=== PATIENT | male | born 1990 | race Caucasian/White ===

== ENCOUNTER 2023-06-20 12:57 | Outpatient (AMB) | payer OTHER, SELFPAY ==
--- NOTE | 2023-06-20 13:08 | A.OFFVIS_ITS ---
Intake Vital Signs 06/20/23 13:09 Height 5 ft 6 in Weight 184 lb 8.43 oz BMI 29.8 BP 140/72 H Blood Pressure Location Lt brachial Position Sitting Pulse 67 Pulse Source Pulse Oximeter Pulse Oximetry (%) 99 Oxygen Delivery Method Room Air Intake Visit Reasons: Reactive arthritis Intake Note: [place] patient[place] [facility] [place] presents to office today for consult. Previously seen by Dr. Max and Dr. Mcfarland. Reports being on sulfasalazine, initially prescribed 5 tabs daily but pt has tapered himself down to 3 tabs daily in fear of not being seen for a while and running out of medication. PCP will not refill sulfasalazine. 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 He was diagnosed in 2020 in the emergency room when he present with the triad - eye pain, right knee pain and swelling and UTI. He is being managed with SLZ 500mg. He was prescribed 5 pills per day but has since self-weaned down to 3 pills per day and finds that he does on well on 3. He denies current knee pain but does say depending on his activity level, his heel/achilles may be sore. He does not work the strenuous work anymore so that has helped. He reports he has not had any of the eye pain or UTI since diagnosis. He offers no other health concerns at this time. He has a new PCP and did labs about 2 weeks ago He denies, psoriasis, symptoms of IBD, other areas of tendinitis or lower back pain. 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 Heroin abuse GERD (gastroesophageal reflux disease) Asthma Reactive arthritis Surgical History (Updated 06/03/23 @ 10:56 by JENNIFER Israel) S/P MCL repair Hx of endoscopy Family History (Updated 06/20/23 @ 13:21 by Aniyah Cruz Eduar, CCMA) Father Family history of diabetes mellitus Mother Thyroid disease Family history of breast cancer in female Social History (Updated 06/20/23 @ 13:13 by Aniyah Witt [facility]) Household Members: None Alcohol intake: current Alcohol intake frequency: does not drink Patient Tobacco Use Status: Former Tobacco user Tobacco use type: Cigarette Years Smoked: 10 Review of Systems Const All systems reviewed & are unremarkable except as noted in HPI and below Physical Exam Vital Signs: BMI result Body Mass Index 29.8 APPEARANCE: Patient in no acute distress EYES no redness, eyelids normal NECK:? No thyromegaly or masses, no adenopathy, trachea midline. HEART:? Regular rhythm, S1-S2 heard, no murmurs, rubs or gallops. LUNG:? Clear to percussion and auscultation EXTREMITIES:? No edema, no calf tenderness, normal peripheral pulses. NEURO:? Oriented and alert x3.? No focal weakness.? Reflexes symmetric.? Gait normal. SKIN:? There are no skin lesions evident. No objective signs of Raynaud's phenomenon. JOINT EXAM: Cervical Spine:.? Full range of motion without pain; no tenderness. Thoracic Spine:.? No scoliosis.? No tenderness on palpation. Lumbar Spine:.? Alignment normal.? Full range of motion without pain, no tenderness. Chest Wall:.? No tenderness, swelling, increased warmth or erythema. Hands:.? Normal pain-free range of motion without tenderness, swelling, increased warmth or erythema. Able to make a full fist and has a good grain broker strength. Wrists:.? Normal pain-free range of motion without tenderness, swelling, increased warmth or erythema. Elbows:. Normal pain-free range of motion without tenderness, swelling, increased warmth or erythema. Shoulders:.?? Full range of motion without pain. No tenderness, weakness, swelling, increased warmth or erythema. Hips:.? Full range of motion without pain. Hip bursa:.? No tenderness. Knees:.?? Normal pain-free range of motion without tenderness, swelling, increased warmth or erythema.? There is no effusion or crepitation Ankles:.? Normal pain-free range of motion without tenderness, swelling, increased warmth or erythema. mild tenderness on palpation to right achilles. Feet:.? Normal pain-free range of motion without tenderness, swelling, increased warmth or erythema. ? 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 Julio here for management of Bruce's. He is very established in his care and has been taking sulfasalazine since 2020. He has been stable without major symptoms for a long time and has self-weaned down to 3 tablets per day. PE was unremarkable. We discussed that the main symptoms of reactive arthritis typically goes away in a few months. Sometimes some persons may have a residual mild arthritis symptoms for up to a year while some may develop mild, long-term arthritis.?It is also possible have a flare-up of reactive arthritis in the future. I think we should continue to wean over the next year so at next visit, we will reduce to two pills and reassess. #Labels Molder Use: He denies side effects and never had SJS. Will reach to PCP for recent labs and also order labs to be done one week before next visit in 4 months. We will check CBC, liver and kidney functions. I spent 30 minutes reviewing chart, evaluating patient and documenting. 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
[2023-06-20 13:09] VITALS: BP 140/72; PULSE 67; O2SAT 99; BMI 29.8
== END 2023-06-20 13:35 | disposition home or self-care (01) ==
PROVIDERS: PCP Internal Medicine; Visit Provider Nurse Practitioner Family
DX: M02.361 Reiter's disease, right knee (principal); Z79.61 Long term (current) use of immunomodulator
CPT/HCPCS: 99203

== ENCOUNTER → 2023-06-20 12:57 | Outpatient (BNVA) | payer OTHER, SELFPAY | PROVIDERS: PCP Internal Medicine; Visit Provider Nurse Practitioner Family ==

== ENCOUNTER 2023-10-17 13:59 | Outpatient (REF) | payer OTHER, SELFPAY ==
[2023-10-17 15:56] LABS: MANUAL DIFF FLAG NO
[2023-10-17 16:16] LABS: Basophils Absolute Auto 0.1 X10*3/uL (0.0-0.2); Basophils Percent Auto 1.2 % (0-2); Eosinophils Percent Auto 0.2 % (0-4); Hematocrit 38.5 % (42.0-52.0); Hemoglobin 13.3 g/dl (14.0-18.0); Imm Gran Abs Auto 0.01 X10*3/uL (0.00-0.03); Imm Gran Pct Auto 0.2 % (0.0-0.4); Lymphocytes Absolute Auto 1.6 X10*3/uL (1.2-4.9); Lymphocytes Percent Auto 31.1 % (20-40); Mean Corpuscular HGB Conc 34.5 g/dl (31.0-36.0); Mean Corpuscular Volume 86.7 fL (80.0-98.0); Mean Platelet Volume 10.1 fL (9.4-12.4); Monocytes Absolute Auto 0.4 X10*3/uL (0.1-1.2); Neutrophils Absolute Auto 3.1 x10*3/uL (2.0-8.3); Neutrophils Percent Auto 60.3 % (45-73); Platelet Count 276 X10*3/uL (160-400); Red Blood Count 4.44 X10*6/uL (4.60-5.80); Red Cell Distribution Width 13.1 % (11.0-16.0); White Blood Count 5.1 X10*3/uL (4.8-10.8)
[2023-10-17 16:35] LABS: Alanine Aminotransferase 19 U/L (0-40); Albumin Level 4.8 g/dL (3.5-5.0); Alkaline Phosphatase 37 U/L (39-117); Anion Gap 15 (12-20); Aspartate Amino Transferase 21 U/L (5-37); Bilirubin Total 0.9 mg/dL (0.0-1.0); Blood Urea Nitrogen 11 mg/dL (9-16); C Reactive Protein 0.23 mg/dL (< or = 0.50); Calcium 9.8 mg/dL (8.4-10.2); Carbon Dioxide 24 mmol/L (22-29); Chloride 105 mmol/L (96-108); Estimated Glomerular Filt Rate > 60; Glucose Random 94 mg/dL (60-115); Potassium 3.5 mmol/L (3.3-5.1); Sodium 140 mmol/L (135-145); Total Protein 7.7 g/dL (6.5-8.0)
[2023-10-17 18:03] LABS: Erythrocyte Sedimentation Rate 8 MM/HR (0-15)
== END 2023-10-17 14:00 | disposition home or self-care (01) ==
LOC: HO.HMGCLDS 13:59
PROVIDERS: PCP Internal Medicine; Visit Provider Nurse Practitioner Family
DX: M02.30 Reiter's disease, unspecified site (principal); Z79.61 Long term (current) use of immunomodulator
CPT/HCPCS: 36415; 80053; 85025; 85652; 86140

== ENCOUNTER 2023-10-18 13:18 | Outpatient (AMB) | payer OTHER, SELFPAY ==
--- NOTE | 2023-10-18 13:20 | MHC.OFFVIS ---
Vital Signs 10/18/23 13:52 Height 5 ft 6 in Weight 180 lb 15.992 oz BMI 29.2 BP 132/78 Blood Pressure Location Rt brachial Position Sitting Pulse 83 Pulse Oximetry (%) 98 Intake Visit Reasons: Reactive Arthritis Intake Note: Patient last seen 06/20/23 by Monserrat, presents today for follow up and test results. 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 Julio, 32yoM here for follow-up of Bruce's Syndrome (Reactive arthritis). He is on SLZ 500 mg 3 pill QD and would like to taper off. He denies any ROS since last visit. 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 Labs - He endorses long standing TONY, has used Brody Sulph and finds that it causes him ot have severe constipation. 06/20/2023 Mr. 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 He was diagnosed in 2020 in the emergency room when he present with the triad - eye pain, right knee pain and swelling and UTI. He is being managed with SLZ 500mg. He was prescribed 5 pills per day but has since self-weaned down to 3 pills per day and finds that he does on well on 3. He denies current knee pain but does say depending on his activity level, his heel/achilles may be sore. He does not work the strenuous work anymore so that has helped. He reports he has not had any of the eye pain or UTI since diagnosis. He offers no other health concerns at this time. He has a new PCP and did labs about 2 weeks ago He denies, psoriasis, symptoms of IBD, other areas of tendinitis or lower back pain. 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 Heroin abuse GERD (gastroesophageal reflux disease) Asthma Reactive arthritis Surgical History S/P MCL repair Hx of endoscopy Family History (Updated 06/20/23 @ 13:21 by JENNIFER Israel) Father Family history of diabetes mellitus Mother Thyroid disease Family history of breast cancer in female Social History (Updated 06/20/23 @ 13:23 by JENNIFER Israel) Household Members: None Alcohol intake: current Alcohol intake frequency: does not drink Patient Tobacco Use Status: Former Tobacco user Tobacco use type: Cigarette Years Smoked: 10 Review of Systems Const All systems reviewed & are unremarkable except as noted in HPI and below Physical Exam Vital Signs: Last Vital Signs Pulse 83 10/18/23 13:52 BP 132/78 10/18/23 13:52 Pulse Ox 98 10/18/23 13:52 BMI result Body Mass Index 29.2 Vital signs reviewed. Constitutional: Non-toxic appearing. No acute distress. Well-developed and well-nourished. HEENT: Normocephalic and atraumatic. External auditory canals without erythema or edema bilaterally. Skin: Warm and dry. No rashes or lesions noted. Cardio: Regular rate and rhythm. No murmurs, gallops, or rubs. No lower extremity edema. No JVD. Pulmonary: No respiratory distress. No accessory muscle usage. Musculoskeletal: Normal range of motion in joints throughout the body. No deformity or other signs of injury. Neuro: Alert and oriented x4. Cranial nerves 2-12 grossly intact. No focal deficits appreciated. Results Reviewed Results Reviewed: Laboratory Tests 10/17/23 14:02 WBC 5.1 RBC 4.44 L Hgb 13.3 L Hct 38.5 L ESR 8 AST 21 ALT 19 Alkaline Phosphatase 37 L C-Reactive Protein 0.23 Assessment & Plan Assessment & Plan (1) Bruce's disease, right knee: Code(s): M02.361 - Bruce's disease, right knee Category: Medical (2) detention (current) use of immunomodulator: Code(s): Z79.61 - diagnostic radiologist (current) use of immunomodulator Category: Medical (3) Pain of right heel: Code(s): M79.671 - Pain in right foot Category: Medical Plan #Bruce's Right Knee: Mr. Julio is very established in his care and has been taking sulfasalazine since 2020. He has been stable without major symptoms for a long time and has self-weaned down to 3 tablets per day and desires to be completely off the medication. PE was unremarkable. We discussed that the main symptoms of reactive arthritis typically self-limiting and usually goes away in a few months to one year. Sometimes some persons may have a residual mild arthritis symptoms for up to a year while some may develop mild, long-term arthritis.?It is also possible to have a flare-up of reactive arthritis in the future. I think we should continue to wean off the medication. We will reduce to 2 pills for one month than to one then off. Patient knows to call the office for ROS. 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 CBC, liver and kidney functions within acceptable ranges. I spent 15 minutes reviewing chart, evaluating patient and documenting. Orders: Orders Comprehensive Met. Panel 6 Months Z79.61 - detention (current) use of immunomodulator Complete Blood Count Auto Diff 6 Months Z79.61 - detention (current) use of immunomodulator XR foot RT min 3V Today M02.361 - Bruce's disease, right knee, M79.671 - Pain in right foot Erythrocyte Sedimentation Rate 6 Months Z79.61 - diagnostic radiologist (current) use of immunomodulator C Reactive Protein 6 Months Z79.61 - detention (current) use of immunomodulator Medications: Changed From sulfasalazine 0.5 grams PO TID 180 tabs 2RF To sulfasalazine 0.5 grams PO BID 180 tabs 1RF Coding Level of Care Code Est Pt Level 2 (42961) Complex EM visit Add On G2211 Diagnoses Bruce's disease, right knee M02.361 diagnostic radiologist (current) use of immunomodulator Z79.61 Pain of right heel M79.671
[2023-10-18 13:52] VITALS: BP 132/78; PULSE 83; O2SAT 98; BMI 29.2
== END 2023-10-18 13:48 | disposition home or self-care (01) ==
PROVIDERS: PCP Internal Medicine; Visit Provider Nurse Practitioner Family
DX: M02.361 Reiter's disease, right knee (principal); Z79.61 Long term (current) use of immunomodulator; M79.671 Pain in right foot
CPT/HCPCS: 99212; G2211

== ENCOUNTER → 2023-10-18 13:18 | Outpatient (BNVA) | payer OTHER, SELFPAY | PROVIDERS: PCP Internal Medicine; Visit Provider Nurse Practitioner Family ==

== ENCOUNTER 2024-04-10 09:45 | Outpatient (REF) | payer OTHER, SELFPAY ==
[2024-04-10 10:56] LABS: MANUAL DIFF FLAG NO
[2024-04-10 10:58] LABS: Basophils Absolute Auto 0.1 X10*3/uL (0.0-0.2); Basophils Percent Auto 1.7 % (0-2); Eosinophils Absolute Auto 0.5 X10*3/uL (0.0-0.4); Eosinophils Percent Auto 8.2 % (0-4); Hematocrit 41.6 % (42.0-52.0); Hemoglobin 14.3 g/dl (14.0-18.0); Imm Gran Abs Auto 0.02 X10*3/uL (0.00-0.03); Imm Gran Pct Auto 0.3 % (0.0-0.4); Lymphocytes Percent Auto 31.3 % (20-40); Mean Corpuscular HGB Conc 34.4 g/dl (31.0-36.0); Mean Corpuscular Hemoglobin 28.9 pg (27.0-33.0); Monocytes Absolute Auto 0.5 X10*3/uL (0.1-1.2); Monocytes Percent Auto 6.9 % (2-11); Neutrophils Absolute Auto 3.3 x10*3/uL (2.0-8.3); Neutrophils Percent Auto 51.6 % (45-73); Platelet Count 287 X10*3/uL (160-400); Red Blood Count 4.95 X10*6/uL (4.60-5.80); White Blood Count 6.5 X10*3/uL (4.8-10.8)
[2024-04-10 11:14] LABS: Alanine Aminotransferase 40 U/L (0-40); Albumin Level 4.5 g/dL (3.5-5.0); Alkaline Phosphatase 50 U/L (39-117); Anion Gap 15 (12-20); Aspartate Amino Transferase 28 U/L (5-37); Bilirubin Total 0.6 mg/dL (0.0-1.0); Blood Urea Nitrogen 13 mg/dL (9-16); C Reactive Protein 0.58 mg/dL (< or = 0.50); Calcium 9.6 mg/dL (8.4-10.2); Carbon Dioxide 26 mmol/L (22-29); Chloride 104 mmol/L (96-108); Estimated Glomerular Filt Rate > 60; Glucose Random 95 mg/dL (60-115); Potassium 4.5 mmol/L (3.3-5.1); Sodium 140 mmol/L (135-145); Total Protein 7.8 g/dL (6.5-8.0)
[2024-04-10 11:36] LABS: Erythrocyte Sedimentation Rate 14 MM/HR (0-15)
== END 2024-04-10 09:46 | disposition home or self-care (01) ==
LOC: HO.HMGCLDS 09:45
PROVIDERS: PCP Internal Medicine; Visit Provider Nurse Practitioner Family
DX: Z79.899 Other long term (current) drug therapy (principal); Z79.61 Long term (current) use of immunomodulator
CPT/HCPCS: 36415; 80053; 85025; 85652; 86140

== ENCOUNTER 2024-04-17 13:56 | Outpatient (AMB) | payer OTHER, SELFPAY ==
[2024-04-17 13:59] VITALS: BP 122/76; PULSE 74; O2SAT 100; BMI 30.9
--- NOTE | 2024-04-17 13:59 | MHC.OFFVIS ---
Vital Signs 04/17/24 13:59 Height 5 ft 6 in Weight 191 lb 9.307 oz BMI 30.9 BP 122/76 Blood Pressure Location Lt brachial Position Sitting Pulse 74 Pulse Source Pulse Oximeter Pulse Oximetry (%) 100 Oxygen Delivery Method Room Air Intake Visit Reasons: RA/CM Intake Note: Patient presents for follow up on RA with follow up on lab work, he was last seen in the office on 10/18/23 by Annette German. He was tapering off Sulfasalazine, is feeling good, but his knees and right achilles still feeling something there. Allergies amoxicillin Adverse Reaction (Mild, Verified 04/17/24 14:03) Unknown Medication List - Last Reconciled 04/17/24 by Lauryn Gaytan MD lisinopril 20 mg PO DAILY omeprazole 40 mg PO DAILY HPI Comments Details: Patient is a 33-year-old male with hypertension who presents for follow up of reactive arthritis Interval History: Patient last seen 10/18/2023 with Annette connolly. At that time he was doing well and the decision made was to taper the sulfasalazine to off Today patient is following up after stopping sulfasalazine 02/2024. States he has been stable and doing well no further knee pains. 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 Rheumatologic History: Patient initially presented with synovitis to his right knee as evidenced by swelling and tenderness back in 2020. He was diagnosed with reactive arthritis and started on sulfasalazine with improvement. He was on sulfasalazine for over 2 years and stable. Decision made to taper sulfasalazine 06/20/2023. This was tolerated well. 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 Heroin abuse GERD (gastroesophageal reflux disease) Asthma Reactive arthritis Surgical History S/P MCL repair Hx of endoscopy Family History (Updated 06/20/23 @ 13:21 by JENNIFER Israel) Father Family history of diabetes mellitus Mother Thyroid disease Family history of breast cancer in female Social History (Updated 06/20/23 @ 13:23 by Aniyah Witt [facility]) Household Members: None Alcohol intake: current Alcohol intake frequency: does not drink Patient Tobacco Use Status: Former Tobacco user Tobacco use type: Cigarette Years Smoked: 10 Review of Systems Const Details: Review of Systems Constitutional: Denies fever, chills, weight loss ENT: Denies vision changes, eye pain or eye redness, dental caries, dry mouth GI: Denies nausea, vomiting, diarrhea, abdominal pain, change in BM Pulm: Denies SOB, DIMAS, hemoptysis, wheezing Cards: Denies chest pain, palpitations Skin: Denies Raynaud's, rash, nail changes, photosensitivity, SOFTWARE 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 Well appearing and in no apparent painful distress HEENT Conjunctiva and sclera clear. ?Pupils equal round and reactive to light. ?No lymphadenopathy. CHEST/RESPIRATORY SYSTEM Normal respiratory effort and able to speak in complete sentences. ?Clear to auscultation bilaterally. ?No crackles, rales, rhonchi, wheezes heard. CARDIAC SYSTEM Regular rate and rhythm. ?S1 and S2 heard no murmurs. ?Radial pulses intact bilaterally MSK Hands: ?Good press setter strength bilaterally - 5/5. ?No deformities noted. ?No synovitis noted to the MCPs, PIPs or DIPs. ?No tenderness to palpation of these joints. Wrists: ?Full range of motion at the wrists without pain. ?No tenderness to palpation or synovitis noted to the wrists. Elbows: Full range of motion without pain. No tenderness, weakness, swelling, increased warmth or erythema. Shoulders: Full range of motion without pain. No tenderness, weakness, swelling, increased warmth or erythema. Hips: Full range of motion without pain. Hip bursa: No tenderness to palpation Knees: ?Full range of motion. ?No tenderness, swelling, increased warmth or erythema.?No effusion or crepitations Ankles: Full range of motion. ?No tenderness, swelling, increased warmth or erythema.? Feet: ?Negative squeeze test. ?No tenderness to palpation or swelling of the MTPs. Tender points:??No tenderness to palpation of the neck, shoulders, chest, elbows, hips, buttocks or knees. SKIN Skin intact without rashes. Results Reviewed Results Reviewed: Laboratory Tests 04/10/24 10:19 WBC 6.5 RBC 4.95 Hgb 14.3 Hct 41.6 L Plt Count 287 ESR 14 Sodium 140 Potassium 4.5 D Chloride 104 Carbon Dioxide 26 BUN 13 Creatinine 1.01 AST 28 ALT 40 C-Reactive Protein 0.58 H Assessment & Plan Assessment & Plan (1) Reactive arthritis: Code(s): M02.30 - Bruce's disease, unspecified site Category: Medical Qualifiers: Reactive arthritis location: knee Laterality: right Qualified Code(s): M02.361 - Bruce's disease, right knee Plan: #Reactive arthritis Patient with reactive arthritis currently in remission. The natural history of reactive arthritis is full remission after 1-2 years. There is a possibility that he can have recurrence but I think it is a fair decision to taper him off his immunosuppression Plan - patient to follow up in 1 year - patient can call office if new evidence of swelling to the knee Plan I spent 20 minutes reviewing the record and labs, seeing the patient, discussing the treatment plan and documenting in the medical record ? Coding Level of Care Code Est Pt Level 3 (46445) Diagnoses Reactive arthritis of right knee M02.361 Reactive arthritis location: knee Laterality: right
== END 2024-04-17 14:24 | disposition home or self-care (01) ==
PROVIDERS: PCP Internal Medicine; Visit Provider Student in an Organized Health Care Education/Training Program
DX: M02.361 Reiter's disease, right knee (principal)
CPT/HCPCS: 99213

== ENCOUNTER → 2024-04-17 13:56 | Outpatient (BNVA) | payer OTHER, SELFPAY | PROVIDERS: PCP Internal Medicine; Visit Provider Student in an Organized Health Care Education/Training Program ==

== ENCOUNTER 2025-04-14 14:27 | Outpatient (REF) | payer OTHER, SELFPAY ==
[2025-04-14 16:10] LABS: MANUAL DIFF FLAG NO
[2025-04-14 16:20] LABS: Hematocrit 41.9 % (42.0-52.0); Hemoglobin 14.5 g/dl (14.0-18.0); Imm Gran Abs Auto 0.03 X10*3/uL (0.00-0.03); Imm Gran Pct Auto 0.4 % (0.0-0.4); Lymphocytes Absolute Auto 1.9 X10*3/uL (1.2-4.9); Mean Corpuscular HGB Conc 34.6 g/dl (31.0-36.0); Mean Corpuscular Hemoglobin 28.8 pg (27.0-33.0); Mean Corpuscular Volume 83.1 fL (80.0-98.0); NRBC Abs Auto 0.000 X10*3/uL (0.0-0.012); NRBC Pct Auto 0.0 /100WBC (0.0-0.2); Platelet Count 299 X10*3/uL (160-400); Red Blood Count 5.04 X10*6/uL (4.60-5.80); White Blood Count 7.4 X10*3/uL (4.8-10.8)
[2025-04-14 16:37] LABS: Alanine Aminotransferase 43 U/L (0-40); Albumin Level 4.9 g/dL (3.5-5.0); Alkaline Phosphatase 47 U/L (39-117); Anion Gap 15 (12-20); Aspartate Amino Transferase 29 U/L (5-37); Blood Urea Nitrogen 13 mg/dL (9-16); Calcium 9.7 mg/dL (8.4-10.2); Carbon Dioxide 25 mmol/L (22-29); Chloride 102 mmol/L (96-108); Estimated Glomerular Filt Rate > 60; Potassium 4.6 mmol/L (3.3-5.1); Sodium 137 mmol/L (135-145); Total Protein 7.7 g/dL (6.5-8.0)
== END 2025-04-14 14:28 | disposition home or self-care (01) ==
LOC: HO.HMGCLDS 14:27
PROVIDERS: PCP Internal Medicine; Visit Provider Student in an Organized Health Care Education/Training Program
DX: M02.361 Reiter's disease, right knee (principal)
CPT/HCPCS: 36415; 80053; 85025; 85652; 86140

== ENCOUNTER 2025-04-16 14:59 | Outpatient (AMB) | payer OTHER, SELFPAY ==
--- NOTE | 2025-04-16 15:23 | A.OFFVIS_ITS ---
Vital Signs 04/16/25 15:29 Height 5 ft 6 in Weight 179 lb 14.355 oz BMI 29.0 BP 150/82 H Blood Pressure Location Lt brachial Position Sitting Pulse 66 Pulse Source Pulse Oximeter Pulse Oximetry (%) 98 Oxygen Delivery Method Room Air Intake Visit Reasons: follow up Intake Note: Patient presents for RA follow up and test results. Backend Python Developer Required: No Information Interpreted: non-clinical & clinical Accompanied by: Self / Same As Patient Allergies amoxicillin Adverse Reaction (Mild, Verified 04/16/25 15:28) Unknown HPI Comments Details: Patient is a 34-year-old male with hypertension who presents for follow up of reactive arthritis Interval History: Patient last seen 04/17/24 with me - Following up after stopping sulfasalazine 02/2024. - States he has been stable and doing well no further knee pains. 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 Today - Not on DMARDs - Doing well, no return of symptoms - Still gets some right posterior ankle pain but nothing new Rheumatologic History: Patient initially presented with synovitis to his right knee as evidenced by swelling and tenderness back in 2020. He was diagnosed with reactive arthritis and started on sulfasalazine with improvement. He was on sulfasalazine for over 2 years and stable. Decision made to taper sulfasalazine 06/20/2023. This was tolerated well. 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 Heroin abuse GERD (gastroesophageal reflux disease) Asthma Reactive arthritis Surgical History S/P MCL repair Hx of endoscopy Family History Father Family history of diabetes mellitus Mother Thyroid disease Family history of breast cancer in female Social History Household Members: None Alcohol intake: current Alcohol intake frequency: does not drink Patient Tobacco Use Status: Former Tobacco user Tobacco use type: Cigarette Years Smoked: 10 Review of Systems Narrative Review of Systems Constitutional: Denies fever, chills, weight loss ENT: Denies vision changes, eye pain or eye redness, dental caries, dry mouth GI: Denies nausea, vomiting, diarrhea, abdominal pain, change in BM Pulm: Denies SOB, DIMAS, hemoptysis, wheezing Cards: Denies chest pain, palpitations Skin: Denies Raynaud's, rash, nail changes, photosensitivity, MANAGER QA: Denies headaches, weakness, paresthesias, recurrent falls MSK: as per HPI All other systems reviewed and are unremarkable except noted above Physical Exam Exam Exam: Vital signs reviewed Physical Examination CONSTITUITIONAL Patient alert and cooperative. Well appearing and in no apparent painful distress MSK Hands * Right Hand: Able to make a fist. No swelling or tenderness to palpation of the MCPs, PIPs or DIPs. No deformities noted. * Left Hand: Able to make a fist. No swelling or tenderness to palpation of the MCPs, PIPs or DIPs. No deformities noted. Wrists * Right Wrist: Full ROM to flexion and extension. No swelling or TTP * Left Wrist: Full ROM to flexion and extension. No swelling or TTP Elbows * Right Elbow: Full ROM. No swelling or TTP. No TTP of the medial epicondyle. No TTP of the lateral epicondyle * Left Elbow: Full ROM. No swelling or TTP. No TTP of the medial epicondyle. No TTP of the lateral epicondyle Shoulders * Right shoulder: Full ROM. No swelling noted. No TTP of the AC joint. No TTP of the subacromial bursa. No TTP of the posterior shoulder * Left shoulder: Full ROM. No swelling noted. No TTP of the AC joint. No TTP of the subacromial bursa. No TTP of the posterior shoulder Knees * Right knee: Full ROM. No swelling noted. No TTP of the knee joint line. No TTP of pes anserine bursa * Left knee: Full ROM. No swelling noted. No TTP of the knee joint line. No TTP of pes anserine bursa. Ankles * Right ankle: Good ankle dorsiflexion and plantar flexion. No swelling. No TTP of the ankle joint * Left ankle: Good ankle dorsiflexion and plantar flexion. No swelling. No TTP of the ankle joint Feet * Right foot: Negative squeeze test * Left foot: Negative squeeze test Tender points? * No tenderness to palpation of the bilateral trapezius, supraspinatus, anterior costochondral junctions, bilateral suboccipital muscle insertions Vital Signs: Last Vital Signs Pulse 66 04/16/25 15:29 BP 150/82 H 04/16/25 15:29 Pulse Ox 98 04/16/25 15:29 Oxygen Delivery Method Room Air 04/16/25 15:29 BMI result Body Mass Index 29.0 Results Reviewed Results Reviewed: Laboratory Tests 04/14/25 14:32 WBC 7.4 RBC 5.04 Hgb 14.5 Hct 41.9 L Plt Count 299 ESR 14 Sodium 137 Potassium 4.6 Chloride 102 Carbon Dioxide 25 BUN 13 Creatinine 1.13 AST 29 ALT 43 H C-Reactive Protein 0.37 Assessment & Plan Assessment & Plan (1) Reactive arthritis: Code(s): M02.30 - Bruce's disease, unspecified site Category: Medical Qualifiers: Reactive arthritis location: knee Laterality: right Qualified Code(s): M02.361 - Bruec's disease, right knee Plan: #Reactive arthritis Patient is a 34 year old male with reactive arthritis currently in remission. The natural history of reactive arthritis is full remission after 1-2 years. Will follow for one more time in a year then he can follow up prn Plan - patient to follow up in 1 year - patient can call office if new evidence of swelling to the knee Plan I spent 20 minutes reviewing the record and labs, seeing the patient, discussing the treatment plan and documenting in the medical record ? Coding Level of Care Code Est Pt Level 3 (02168) Diagnoses Reactive arthritis of right knee M02.361 Reactive arthritis location: knee Laterality: right
[2025-04-16 15:29] VITALS: BP 150/82; PULSE 66; O2SAT 98; BMI 29.0
--- OUTSIDE RECORDS SUMMARY | 2025-04-16 19:06 | XMS_ITS | Encounter Summary ---
Author Organization [facility] Address [address] [place] [address] Care Team Providers Care Back Grinder Name Role Phone Jessenia Carias MD Primary Care Provider [phone] Encounter Details Date Type Department Care Team (Late st Contact Info) Description 06/12/[address] [facility] - Main Lab [address] [facility] [place] [address] Holly Hewitt NP [address] [place] [address] Encounter for general adult medical examination without abnormal findings; Impaired fasting glucose; Encounter for screening for lipoid disorders Social History Tobacco Use Types Packs/Day Years Used Date Smoking Tobacco: Former Cigarettes Smokeless Tobacco: Former Quit: 10/25/2020 Alcohol Use Standard Drinks/Week Comments No 0 (1 standard drink = 0.6 oz pur e alcohol) Sex and Gender Information Value Date Recorded Sex Assigned at Not on file Legal Sex Male 5:44 PM EST Gender Identity Not on file Sexual Orientation Not on file documented as of this encounter Plan of Treatment Not on file documented as of this encounter Procedures Procedure Name Priority Date/Time Associated Diagnosis Comments NON-GYNECOLOGIC CYTOLOGY Routine 06/11/2024 12:00 AM EST Encounter for general adult medical examination without abnormal findings Impaired fasting glucose Encounter for screening for lipoid disorders documented in this encounter Results * Non-gynecologic cytology (06/11/2024 12:00 AM EST) Final Diagnosis A. Urine, Voided, urine: Negative for high grade urothelial carcinoma. 06/12/2024 2:36 PM EST [facility] at 1436 EST Specimen A Adequacy Satisfactory for evaluation 06/12/2024 2:36 PM [facility] Gross Description A. Urine, Voided, urine: Received 30 ml of clear yellow fluid; 1 ThinPrep, 06/12/2024 2:36 PM [facility] Disclaimer Unless otherwise specified, all tissue is 10% NB formalin fixed and paraffin embedded. Technical cytopathology services provided by [facility], at [address] [place] [address] (CLIA # [id number]/Arelis Soares MD, Data Architect Manager.) 06/12/2024 2:36 PM [facility] Urine Urine specimen from urethra / Unknown 06/11/2024 06/12/2024 9:30 AM EST us Barrera Hewitt AUDIOVISUAL TECH LAB CYTOLOGY ORDERABLES Final Re sult [facility]) [facility] [address] [place] [address], documented in this encounter Visit Diagnoses Diagnosis Encounter for general adult medical examination without abnormal findings Impaired fasting glucose Encounter for screening for lipoid disorders documented in this encounter Care Teams Back Grinder Relationship Specialty Start Date End Date Jessenia Carias MD [address] [place] [phone] PCP - General Anesthesiology 04/13/21 documented as of this encounter
--- OUTSIDE RECORDS SUMMARY | 2025-04-16 19:06 | XMS_ITS | Encounter Summary ---
Author Organization [facility] Address [address] [place] [address] Care Team Providers Care Cryptanalyst Name Role Phone Jessenia Carias MD Primary Care Provider [phone] Encounter Details Date Type Department Care Team (Late st Contact Info) Description 05/29/2024 Lab Requisition [facility] - Main Lab [address] [facility] [place] [address] Hong Simons DO [address] [place] [phone] Hematuria, unspecified; Urinary tract infection, site not specified Social History Tobacco Use Types Packs/Day Years [...] Procedure Name Priority Date/Time Associated Diagnosis Comments URINALYSIS WITH REFLEX MICROSCOPIC Routine 05/29/2024 12:00 AM EST Hematuria, unspecified Urinary tract infection, site not specified URINALYSIS WITH REFLEX MICROSCOPIC Routine 05/29/2024 12:00 AM EST Hematuria, unspecified Urinary tract infection, site not specified CULTURE URINE Routine 05/29/2024 12:00 AM EST Hematuria, unspecified Urinary tract infection, site not specified documented in this encounter Results * (ABNORMAL) Urinalysis with reflex microscopic (05/29/2024 12:00 AM EST) Specific [place] Urine 1.010 1.003 - 1.030 LAB URINALYSIS - AUTOMATED METHOD 05/29/2024 7:51 PM [facility] pH, Urine 6.0 5.0 - 8.0 pH LAB URINALYSIS - AUTOMATED METHOD 05/29/2024 7:51 PM [facility] Leukocytes, Urine Negative Negative LAB URINALYSIS - AUTOMATED METHOD 05/29/2024 7:51 PM [facility] Nitrite, Urine Negative Negative LAB URINALYSIS - AUTOMATED METHOD 05/29/2024 7:51 PM [facility] Protein, Urine Negative <=Trace mg/dL LAB URINALYSIS - AUTOMATED METHOD 05/29/2024 7:51 PM [facility] Glucose, Urine Negative Negative mg/dL LAB URINALYSIS - AUTOMATED METHOD 05/29/2024 7:51 PM [facility] Ketones, Urine Trace(A) Negative mg/dL LAB URINALYSIS - AUTOMATED METHOD 05/29/2024 7:51 PM [facility] Urobilinogen, Urine 0.2 0.2 - 1.0 mg/dL LAB URINALYSIS - AUTOMATED METHOD 05/29/2024 7:51 PM [facility] Bilirubin, Urine Negative Negative LAB URINALYSIS - AUTOMATED METHOD 05/29/2024 7:51 PM [facility] Blood, Urine Negative Negative LAB URINALYSIS - AUTOMATED METHOD 05/29/2024 7:51 PM [facility] Urine Urine specimen obtained by clean catch procedure / Unknown 05/29/2024 05/29/2024 7:10 PM EST us Hong Simons DO LAB URINE ORDERABLES Final Re sult [facility] [address] [place] [address], [place] [phone] * Culture urine (05/29/2024 12:00 AM EST) Culture, Urine No growth 05/30/2024 1:44 PM EST [facility] Urine Urine specimen obtained by clean catch procedure / Unknown 05/29/2024 05/29/2024 7:10 PM EST Hong Simons DO LAB MICROBIOLOGY - GENERAL OR DERABLES Final Result Performing Organization Address [facility] Co de Phone Number [facility] [address] [place] [address], [place] [phone] documented in this encounter Visit Diagnoses Diagnosis Hematuria, unspecified Urinary tract infection, site not specified documented in this encounter Care Teams Cryptanalyst Relationship Specialty Start Date End Date Jessenia Carias MD [address] [place] [phone] PCP - General Anesthesiology 04/13/21 documented as of this encounter
--- OUTSIDE RECORDS SUMMARY | 2025-04-16 19:06 | XMS_ITS | Clinical Summary ---
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 (HCC ) Asthma 11/01/2016 DX:Asthma Kent's esophagus 11/01/2016 DX:Kent's esophagus; COMMENT: EGD 12/2014 Depression 11/01/2016 DX:Depression GERD (gastroesophageal reflux disease) 11/01/2016 DX:GERD (gastroesophageal reflux disease) Hypertriglyceridemia 11/01/2016 DX:Hypertri glyceridemia Family History Medical History Relation Name Comments Other: Other Father Depression Other Diabetes Other Hypertension Other Macular degeneration Other Other: lewy body dementia Other Thyroid disease Other Breast cancer Paternal Grandmother Relation Name Status Comments Father Other Paternal Grandmother Social History Tobacco Use Types Packs/Day Years Used Date Smoking Tobacco: Former Cigarettes Smokeless Tobacco: Former Quit: 10/25/2020 Alcohol Use Standard Drinks/Week Comments No 0 (1 standard drink = 0.6 oz pur e alcohol) Sex and Gender Information Value Date Recorded Sex Assigned at Not on file Legal Sex Male 5:44 PM EST Gender Identity Not on file Sexual Orientation Not on file Obstetrics History Plan of Treatment Health Maintenance Due Date Last Done Comments DTaP,Tdap,and Td Vaccines (1 - Tdap) 11/14/2011 Hepatitis B Vaccines (1 of 3 - 19+ 3-dose series) 11/14/2011 HPV Vaccines (1 - 3-dose SCDM series) 11/14/2019 Pneumococcal Vaccine: Pediatrics (0 to 5 Years) and At-Risk Patients (6 to 49 Years) (2 of 2 - PPSV23, PCV20, or PCV21) 10/05/2021 08/10/2021 HIV Screening 04/14/2022 Hepatitis C Screening 04/14/2022 Social Influencers of Health Screening 04/14/2022 Depression Screening 05/13/2024 COVID-19 Vaccine ( season) 2025 04/27/2022, 05/15/2021, 10/21/2020, Additional history exists Influenza Vaccine (#1) 2025 , 04/27/2022, 05/15/2021 Hypertension/CHF/CAD Annual BMP Blood Test 06/11/2025 06/11/2024 Cholesterol Screening (Lipid Panel) 06/11/2029 06/11/2024 RSV Immunization Adult Patients (1 - 1-dose 75+ series) 11/14/2067 HIB Vaccines Aged Out No longer eligi ble based on patient's age to complete this topic Hepatitis A Vaccines Aged Out No long er eligible based on patient's age to complete this topic IPV Vaccines Aged Out No longer eligi ble based on patient's age to complete this topic MMR Vaccines Aged Out No longer eligi ble based on patient's age to complete this topic Meningococcal ACWY Vaccine Aged Out N o longer eligible based on patient's age to complete this topic Meningococcal B Vaccine Aged Out No l onger eligible based on patient's age to complete this topic RSV Immunization Patients Under 20 months Aged Out No longer eligible based on patient's age to complete this topic Varicella Vaccines Aged Out No longer eligible based on patient's age to complete this topic Procedures Procedure Name Priority Date/Time Associated Diagnosis Comments BASIC METABOLIC PANEL Routine 06/11/2024 12:08 PM EST Routine general medical examination at a health care facility Urinary frequency Polydipsia Low back pain Screening for thyroid disorder Screening for lipoid disorders Impaired fasting glucose LIPID PANEL WITH REFLEX TO DIRECT LDL Routine 06/11/2024 12:08 PM EST Routine general medical examination at a health care facility Urinary frequency Polydipsia Low back pain Screening for thyroid disorder Screening for lipoid disorders Impaired fasting glucose from Last 3 Months or Most Recently Relevant to Health Maintenance Results * Lipid panel with reflex to direct LDL (06/11/2024 12:08 PM EST) Cholesterol 164 0 - 200 mg/dL LAB CHEMISTRY METHOD 06/11/2024 3:20 PM EST [facility] Triglycerides 35 0 - 150 mg/dL LAB CHEMISTRY METHOD 06/11/2024 3:20 PM EST [facility] HDL 61 >=40 mg/dL LAB CHEMISTRY METHOD 06/11/2024 3:20 PM EST [facility] LDL Calculated 96 0 - 100 mg/dL LAB CHEMISTRY METHOD 06/11/2024 3:20 PM EST [facility] VLDL Cholesterol Jose Manuel 7 mg/dL LAB CHEMISTRY METHOD 06/11/2024 3:20 PM EST [facility] Non HDL Chol. (LDL+VLDL) 103 <145 mg/dL LAB CHEMISTRY METHOD 06/11/2024 3:20 PM EST [facility] Chol/HDL Ratio 2.7 0.0 - 4.4 LAB CHEMISTRY METHOD 06/11/2024 3:20 PM EST [facility] Blood Venous blood specimen / Unknown Venipuncture / Unknown 06/11/2024 12:08 PM EST 06/11/2024 12:08 PM EST us Barrera Hewitt DOCUMENTATION ENGINEER LAB BLOOD ORDERABLES Final Resul t [facility] [address] [place] [address], [place] [phone] * Basic metabolic panel (06/11/2024 12:08 PM EST) Sodium 135 133 - 145 mmol/L LAB CHEMISTRY METHOD 06/11/2024 3:18 PM EST [facility] Potassium 4.0 3.5 - 5.5 mmol/L LAB CHEMISTRY METHOD 06/11/2024 3:18 PM EST [facility] Chloride 102 96 - 110 mmol/L LAB CHEMISTRY METHOD 06/11/2024 3:18 PM [facility] CO2 27 21 - 32 mmol/L LAB CHEMISTRY METHOD 06/11/2024 3:18 PM [facility] Anion Gap 6 3 - 11 LAB CHEMISTRY METHOD 06/11/2024 3:18 PM [facility] Glucose 85 70 - 100 mg/dL LAB CHEMISTRY METHOD 06/11/2024 3:18 PM [facility] BUN 16 5 - 25 mg/dL LAB CHEMISTRY METHOD 06/11/2024 3:18 PM [facility] Creatinine 0.90 0.70 - 1.30 mg/dL LAB CHEMISTRY METHOD 06/11/2024 3:18 PM [facility] eGFR 117 >=60 mL/min/1. 73m2 LAB CHEMISTRY METHOD 06/11/2024 3:18 PM [facility] Comment:Calculation based on the Chronic Kidney Disease Epidemiology Collaboration (CKD-EPI) equation refit without adjustment for race. BUN/Creatinine Ratio 17.8 LAB CHEMISTRY METHOD 06/11/2024 3:18 PM [facility] Calcium 9.8 8.5 - 10.5 mg/dL LAB CHEMISTRY METHOD 06/11/2024 3:18 PM [facility] Blood Venous blood specimen / Unknown Venipuncture / Unknown 06/11/2024 12:08 PM EST 06/11/2024 12:08 PM EST us Barrera Hewitt DOCUMENTATION ENGINEER LAB BLOOD ORDERABLES Final Resul t [facility] [address] [place] [address], from Last 3 Months or Most Recently Relevant to Health Maintenance Insurance [facility] MEDICAID - [place] Care Teams Greeter Guest Services Relationship Specialty Start Date End Date Jessenia Carias MD [address] [place] [phone] PCP - General Anesthesiology 04/13/21
== END 2025-04-16 15:53 | disposition home or self-care (01) ==
LOC: HO.RHES 14:59
PROVIDERS: PCP Internal Medicine; Visit Provider Student in an Organized Health Care Education/Training Program
DX: M02.361 Reiter's disease, right knee (principal)
CPT/HCPCS: 99213